=== PATIENT | female | born 1980 | race Caucasian/White ===

== ENCOUNTER → 2016-12-09 | Day surgery (SDC) | payer OTHER | END | disposition home or self-care (01) | LOC: FAS 05:46 | DX: G56.02 Carpal tunnel syndrome, left upper limb (principal); K21.9 Gastro-esophageal reflux disease without esophagitis; Z88.6 Allergy status to analgesic agent; Z88.8 Allergy status to other drugs, medicaments and biological substances; Z91.040 Latex allergy status; Z90.49 Acquired absence of other specified parts of digestive tract; Z90.89 Acquired absence of other organs; Z90.710 Acquired absence of both cervix and uterus; Z98.890 Other specified postprocedural states; Z79.84 Long term (current) use of oral hypoglycemic drugs | CPT/HCPCS: J1100; J1885; J2405; J2704; J3010 ==

== ENCOUNTER → 2021-06-13 | Day surgery (SDC) | payer OTHER ==
[~2021-06-13] VITALS: Ht 157.5 cm; Wt 113.6 kg
[~2021-06-13] MED LIST: ACETAMINOPHEN500 M1 PO; ATORVASTATIN CA10 MG PO; BENADRYL25 MG PO; DULOXETINE HCL20 MG PO; HCTZ25 MG PO; OMEPRAZOLE 20MG20 MG PO; PIOGLITAZONE HC15 MG PO; POTASSIUM CHLOR8 ME1 PO; PROAIR HFA8.5 GM INH; TRULICITY1.5 MG/0.5 SC; metformin
[2021-06-13 09:26] LABS: BASOPHIL 0.6 % (0-2); EOSINOPHIL 2.4 % (0-5); HCT 44.1 % (37.0-47.0); HGB 14.2 g/dl (12.5-16.0); LYMPHOCYTE 26.8 % (15-48); MCH 29.4 pg (25.0-31.0); MCHC 32.2 g/dL (32.0-36.0); MCV 91.3 fL (78.0-100.0); MONOCYTE 5.1 % (0-12); MPV 10.2 fL (6.0-9.5); NEUTROPHIL 64.8 % (41-80); NRBC 0; PLT 277 K/uL (150-400); RBC 4.83 M/uL (4.20-5.40); RDW 14.5 % (11.5-14.0); WBC 9.8 K/uL (4.0-10.5)
[2021-06-13 09:49] LABS: BUN/CREAT RATIO (CALC) 19.3 RATIO; CREATININE 0.57 mg/dL (0.51-0.95)
--- NOTE | 2021-06-13 13:23 | NUR ---
1311 EMESISOF 75ML BLOODY FLUID. NO FORM PILL IN EMESIS
--- NOTE | 2021-06-13 13:35 | NUR ---
PATIENT EVALUATED BY KOJO COGNOS [employer]1 DEVELOPER.NO ORDERS.
== END | disposition home or self-care (01) ==
LOC: FAS 08:35
PROVIDERS: Oral & Maxillofacial Surgery
DX: K02.9 Dental caries, unspecified (principal); K04.7 Periapical abscess without sinus; E66.01 Morbid (severe) obesity due to excess calories; E11.9 Type 2 diabetes mellitus without complications; Z88.6 Allergy status to analgesic agent; Z88.8 Allergy status to other drugs, medicaments and biological substances
CPT/HCPCS: 36415; 71045; 80048; 85025; 93005; J1170; J2250; J2405; J2704; J3010; J7120

== ENCOUNTER 2021-06-14 20:53 | Emergency (ER) | payer OTHER ==
[2021-06-14 22:26] LABS: BASOPHIL 0.4 % (0-2); HCT 44.1 % (37.0-47.0); HGB 14.2 g/dl (12.5-16.0); LYMPHOCYTE 15.2 % (15-48); MCH 29.5 pg (25.0-31.0); MCHC 32.2 g/dL (32.0-36.0); MCV 91.7 fL (78.0-100.0); MPV 10.1 fL (6.0-9.5); NEUTROPHIL 81.2 % (41-80); NRBC 0; PLT 233 K/uL (150-400); RBC 4.81 M/uL (4.20-5.40); RDW 14.5 % (11.5-14.0); WBC 8.9 K/uL (4.0-10.5)
[2021-06-14 22:46] LABS: LACTIC ACID 1.2 mmol/L (0.4-1.9)
[2021-06-14 22:54] LABS: ALBUMIN 3.1 g/dL (3.4-5.0); BILIRUBIN - TOTAL 0.5 mg/dL (0.2-1.0); BUN/CREAT RATIO (CALC) 11.6 RATIO; CREATININE 0.69 mg/dL (0.51-0.95); GLOBULIN (CALCULATION) 4.2 g/dL; POTASSIUM 3.5 mmol/L (3.5-5.1); TOTAL PROTEIN 7.3 g/dL (6.4-8.2)
== END 2021-06-15 02:30 | disposition home or self-care (01) ==
LOC: FER 20:53
PROVIDERS: Nurse Practitioner Family
DX: G89.18 Other acute postprocedural pain (principal); R60.9 Edema, unspecified; E11.9 Type 2 diabetes mellitus without complications; J44.9 Chronic obstructive pulmonary disease, unspecified; F17.210 Nicotine dependence, cigarettes, uncomplicated; Z88.6 Allergy status to analgesic agent; Z88.8 Allergy status to other drugs, medicaments and biological substances; Z91.040 Latex allergy status
CPT/HCPCS: 36415; 80053; 83605; 84145; 85025; 87040; J1200; J7030

== ENCOUNTER → 2021-11-18 | Day surgery (SDC) | payer OTHER ==
[~2021-11-18] VITALS: Ht 157.5 cm; Wt 109.9 kg
[~2021-11-18] MED LIST changes: +OZEMPIC0.25 MG/0. SC; +SINGULAIR10 MG PO
== END | disposition home or self-care (01) ==
LOC: FAS 09:14
DX: K63.5 Polyp of colon (principal); K29.80 Duodenitis without bleeding; K64.8 Other hemorrhoids; K29.50 Unspecified chronic gastritis without bleeding; K21.9 Gastro-esophageal reflux disease without esophagitis; E11.42 Type 2 diabetes mellitus with diabetic polyneuropathy; J45.909 Unspecified asthma, uncomplicated; F32.A Depression, unspecified; I10 Essential (primary) hypertension; E78.00 Pure hypercholesterolemia, unspecified; F17.210 Nicotine dependence, cigarettes, uncomplicated; Z88.6 Allergy status to analgesic agent; Z79.84 Long term (current) use of oral hypoglycemic drugs; Z79.899 Other long term (current) drug therapy
CPT/HCPCS: J2250; J2405; J2704; J7120

== ENCOUNTER 2022-03-13 17:50 | Emergency (ER) | payer OTHER ==
[~2022-03-13 17:50] MED LIST changes: +BACTRIM DS TAB1 EACH PO; +KEFLEX250 MG PO
[2022-03-13 19:41] LABS: BASOPHIL 0.5 % (0-2); EOSINOPHIL 1.9 % (0-5); HCT 44.5 % (37.0-47.0); HGB 14.8 g/dl (12.5-16.0); LYMPHOCYTE 27.5 % (15-48); MCH 29.7 pg (25.0-31.0); MCHC 33.3 g/dL (32.0-36.0); MCV 89.2 fL (78.0-100.0); MPV 10.7 fL (6.0-9.5); NEUTROPHIL 63.8 % (41-80); NRBC 0; PLT 286 K/uL (150-400); RBC 4.99 M/uL (4.20-5.40); RDW 13.6 % (11.5-14.0); WBC 12.1 K/uL (4.0-10.5)
[2022-03-13 20:03] LABS: ALBUMIN 3.3 g/dL (3.4-5.0); BILIRUBIN - TOTAL 0.2 mg/dL (0.2-1.0); BUN/CREAT RATIO (CALC) 22.8 RATIO; CREATININE 0.57 mg/dL (0.51-0.95); GLOBULIN (CALCULATION) 4.2 g/dL; POTASSIUM 4.2 mmol/L (3.5-5.1); TOTAL PROTEIN 7.5 g/dL (6.4-8.2)
[2022-03-13 20:23] LABS: BILIRUBIN NEGATIVE (NEGATIVE); BLOOD NEGATIVE Ery/uL (NEGATIVE); CLARITY CLEAR (CLEAR); COLOR YELLOW (YELLOW); GLUCOSE (U) NORMAL (NORMAL); LEUKOCYTES NEGATIVE Leu/uL (NEGATIVE); NITRITE NEGATIVE (NEGATIVE); PROTEIN NEGATIVE (NEGATIVE); SPECIFIC GRAVITY >=1.030 (1.001-1.030); UROBILINOGEN 0.2 mg/dL (0.2-1.0); pH 5.5 (5.0-9.0)
[2022-03-13 20:27] LABS: BACTERIA TRACE; URINARY WBC RARE
[2022-03-13 22:39] LABS: LACTIC ACID 1.4 mmol/L (0.4-1.9)
[2022-03-13] MEDS ORDERED: NORCO 5-325 TA1 EACH PO (23:12)
== END 2022-03-13 23:35 | disposition home or self-care (01) ==
LOC: FER 17:50
PROVIDERS: Physician Assistant
DX: R10.9 Unspecified abdominal pain (principal); G89.29 Other chronic pain; K92.1 Melena; R11.10 Vomiting, unspecified; I10 Essential (primary) hypertension; J45.909 Unspecified asthma, uncomplicated; E78.5 Hyperlipidemia, unspecified; E66.9 Obesity, unspecified; F17.210 Nicotine dependence, cigarettes, uncomplicated; Z88.6 Allergy status to analgesic agent; Z88.8 Allergy status to other drugs, medicaments and biological substances; Z91.040 Latex allergy status; Z91.041 Radiographic dye allergy status; Z79.899 Other long term (current) drug therapy
CPT/HCPCS: 36415; 80053; 81001; 83605; 83690; 85025; J2270; J2405